=== PATIENT | female | born 1960 | race Caucasian/White ===

== ENCOUNTER → 2019-10-26 07:58 | Outpatient (BNVA) | payer BC, SELFPAY | PROVIDERS: Family Provider Nurse Practitioner; PCP Nurse Practitioner; Visit Provider Specialist | DX: G43.019 Migraine without aura, intractable, without status migrainosus (principal); Z87.891 Personal history of nicotine dependence | CPT/HCPCS: 99212 ==

== ENCOUNTER 2020-02-17 07:49 | Outpatient (CLI) | payer BC, SELFPAY ==
--- NOTE | 2020-02-17 08:08 | MM_ITS ---
WS: [id number] BILATERAL SCREENING MAMMOGRAM WITH CONNOR DISPLACEMENT VIEWS. CAD PERFORMED. HISTORY: SCREENING COMPARISON: 12/07/2018 and 12/01/2017 Bilateral craniocaudal and mediolateral like views are performed. Connor displacement views in CC and MLO projection also performed. Breasts composition: The breasts are heterogeneously dense, which may obscure small masses. Implants are intact and unchanged in position. Scattered asymmetries are stable. No suspicious masses. MM/[place] [id number] IMPRESSION: BI-RADS: 2-Benign FOLLOW-UP: 1 Year Follow-up
== END 2020-02-17 07:50 | disposition home or self-care (01) ==
LOC: RADSHAW 07:55
PROVIDERS: PCP Nurse Practitioner; Visit Provider Nurse Practitioner
DX: Z12.31 Encounter for screening mammogram for malignant neoplasm of breast (principal)
CPT/HCPCS: 77067

== ENCOUNTER → 2020-10-23 08:06 | Outpatient (BNVA) | payer BC, SELFPAY | PROVIDERS: PCP Nurse Practitioner; Visit Provider Specialist | DX: G43.019 Migraine without aura, intractable, without status migrainosus (principal); Z87.891 Personal history of nicotine dependence | CPT/HCPCS: 99213 ==

== ENCOUNTER 2021-03-21 05:12 | Outpatient (CLI) | payer BC, SELFPAY ==
[2021-03-21 05:53] VITALS: BP 92/61; PULSE 88; RESP 17; O2SAT 98; BMI 24.0
[2021-03-21 06:38] VITALS: BP 88/53; PULSE 69; RESP 18; O2SAT 97
== END 2021-03-21 05:13 | disposition home or self-care (01) ==
LOC: ER 05:13
PROVIDERS: PCP Nurse Practitioner; Visit Provider Nurse Practitioner Family
DX: U07.1 COVID-19 (principal)

== ENCOUNTER 2021-03-21 07:35 | Emergency (ER) | payer BC, SELFPAY ==
[2021-03-21] VITALS (7 sets, daily range): BP systolic 91–143; BP diastolic 41–94; PULSE 69–81; RESP 14–23; TEMP 37.3; O2SAT 99–100; BMI 20.2
[2021-03-21] MEDS: EPINEPHrine 1 mg/mL INJ 0.3 MG IM (07:50)
--- NOTE | 2021-03-21 07:53 | XR_ITS ---
WS: [id number] CHEST, 1 view. HISTORY: SOB COMPARISON: 08/23/2011 Lungs are clear and well expanded. No pleural effusion or pneumothorax. Cardiac size: Normal. Mediastinum/Aorta: Normal mediastinum. No osseous abnormality seen. XR/XR chest 1V [id number] IMPRESSION: Unremarkable chest.
--- NOTE | 2021-03-21 07:53 | PC.NURSE ---
while this nurse was in room completing triage assessment pt's oxygenation went from 95% on room air to 79% on room air. ED physician notified and in room. Pt placed on oxygen and orders received
--- NOTE | 2021-03-21 08:04 | ECG_ITS ---
Test Date: 2021-03-21 Pat Name: Virginia Biswas Department: Room: Gender: Female [employer]: : 1960 Requested By: Phill Shetty Order Number: [id number] Alberto MD: Rosalba Ramey M.D. Measurements Intervals [place] Rate: 64 P: 76 RI: 141 QRS: 72 QRSD: 89 T: 71 QT: 413 QTc: 428 Interpretive Statements SINUS RHYTHM POSSIBLE LEFT ATRIAL ENLARGEMENT [-0.1mV P WAVE IN V1/V2] No previous ECG available for comparison Electronically Signed On 03-21-2021 20:27:29 CDT by Rosalba Ramey M.D. [email or web address] [id number] f
[2021-03-21 08:05] LABS: ABG PCO2 30.2 mmHg (35-45); ABG PH Result 7.47 (7.35-7.45); Arterial Blood Gas Hematocrit 45.8 % (37-47); Base Excess ABG -0.7 mmol/L (-2.0-2.0); Blood Gas Allen Test Pos; Blood Gas Operator Identificat glc; Blood Gas Sample Site Radial, left; Blood Gas Sample Type Arterial; Carboxyhemoglobin 0.4 %THgb (0.4-20.1); HCO3 ABG 21.9 mmol/L (22-26); HGB O2 Sat 99.5 % (95-100); Ionized Calcium Level - ABG 1.1 mmol/L (1.1-1.4); Methemoglobin 0.6 % (0.4-1.5); Oxygen Device NRB; Oxygen Saturation ABG > 100.0; Potassium Level - ABG 3.8 mmol/L (3.5-5.0); Total Hemoglobin 14.9 g/dL (12-16)
--- NOTE | 2021-03-21 08:08 | ED_ITS ---
HPI - Allergic Reaction General: Chief complaint: Allergic Reaction Stated complaint: allergic reaction covid infusion Time Seen by Provider: 03/21/21 07:43 History of Present Illness: HPI narrative: 60-year-old female who was recently diagnosed with Covid. She is qualified for a monoclonal antibody infusion was in her monoclonal antibody infusion clinic this morning being observed after receiving the infusion began having a rash. Rash was truncal in nature she denied any difficulty breathing. She also had some facial swelling particularly around her eyes. No stridor no vomiting. Patient was given Pepcid Solu-Medrol and Benadryl IV in the infusion clinic I was called to the clinic and evaluated the patient she had no wheezing. She was transported to the ER and admitted. Shortly after arrival here she began developing wheezing particularly on the left side. She was given IM epinephrine and changed from nasal cannula to simple mask nonrebreather. MD complaint: allergic reaction and facial swelling Onset (ago): minute(s) Exposure: medication (Regeneron) Associated symptoms: Reports facial swelling, itching and rash; Deny abdominal pain, difficulty breathing, dysphagia, dizziness, hoarseness, lip swelling, nausea, tongue swelling or vomiting Severity: moderate Treatment prior to arrival: benadryl, steroids and other (Pepcid) Previous Allergic Reaction History: none Review of Systems Const: Denies: fever(s), chills, body aches, change in appetite, fatigue or malaise ENMT: Denies: hoarseness Card: Denies: chest pain, edema, dyspnea on exertion or orthopnea Resp: Denies: dyspnea, productive cough or non-productive cough GI: Denies: abdominal pain, nausea, vomiting or dysphagia : Denies: flank pain, difficulty voiding, dysuria, urinary frequency or urinary urgency Skin/Breast: Denies: rash or pruritus Neuro: Denies: dizziness All/Imm: Reports: facial swelling; Denies: tongue swelling PFSH ED PFSH: Family History Other No pertinent family history Social History Smoking and tobacco status: former smoker History of recent travel: No Physical Exam Const: COMMON NORMALS: no acute distress GENERAL APPEARANCE: cooperative and comfortable ORIENTATION/CONSCIOUSNESS: Yes awake, Yes oriented to person, Yes oriented to place and Yes oriented to time HENMT: COMMON NORMALS: normocephalic, atraumatic and hearing grossly normal bilaterally HEAD & SCALP: normocephalic and atraumatic Eye: COMMON NORMALS: Equal, round and reactive pupils present, EOMs intact bilaterally, conjunctivae normal and no scleral icterus CONJUNCTIVA: Yes conjunctivae normal PUPIL: Yes Equal, round and reactive pupils present OTHER: L eyelid swelling slightly pruritic Neck/C-Spine: COMMON NORMALS: no JVD Lymph: LYMPHATIC: no lymphadenopathy noted and no lymphedema noted Resp: COMMON NORMALS: normal respiratory effort, No retractions, No use of accessory muscles and clear to auscultation bilaterally AUSCULTATION: clear to auscultation bilaterally Cardio: COMMON NORMALS: no JVD, regular rate, regular rhythm and No murmurs present (Cardio) RATE: regular rate RHYTHM: regular rhythm GI: COMMON NORMALS: Soft to palpation and No hepatosplenomegaly present AUSCULTATION: Yes normoactive bowel sounds PALPATION: Yes Soft to palpation, No Tenderness to palpation present (GI), No Guarding due to palpation present (GI) and Yes No hepatosplenomegaly present Extremity: COMMON NORMALS: normal to inspection, capillary refill normal, no clubbing, cyanosis or edema, no calf tenderness and no pedal edema Neuro: SENSORIUM/ORIENTATION: Yes oriented to person, Yes oriented to place and Yes oriented to time Skin: NARRATIVE SKIN EXAM: Truncal rash none of the extremities. Course Vital Signs: Vital signs: Vital Signs Temperature 99.2 F 03/21/21 09:30 Pulse Rate 73 03/21/21 11:13 Respiratory Rate 18 03/21/21 11:13 Blood Pressure 102/54 03/21/21 11:13 Pulse Oximetry 100 03/21/21 11:13 MDM - Allergic Reaction MDM Narrative: Medical decision making narrative: Rash began to resolve with observation patient is feeling much better. Will discharge home dexamethasone daily for 7 days Benadryl as needed if has any worsening or change symptoms return. Lab Data: Labs: Lab Results 03/21/21 03/21/21 03/21/21 Range/Units 08:03 09:07 09:07 WBC 7.6 (4.0-10.0) 10^3/ uL RBC 4.78 (4.1-5.3) 10^6/u L Hgb 14.3 (11.5-15.3) g/dL Hct 43.9 (37.0-47.0) % MCV 91.8 (81-99) fL MCH 29.9 (28.0-34.0) pg MCHC 32.6 (30.0-36.0) g/dL RDW 12.4 (12.1-15.1) % Plt Count 276 (130-400) 10^3/c mm MPV 8.9 (7.4-10.4) fL Neut % (Auto) 80.3 % Lymph % (Auto) 16.0 % [place] % (Auto) 1.6 % Eos % (Auto) 0.5 % Baso % (Auto) 0.4 % Neut # (Auto) 6.13 (1.8-7.7) 10^3/u L Lymph # (Auto) 1.2 (0.8-4.8) 10^3/u L [place] # (Auto) 0.1 L (0.2-0.9) 10^3/u L Eos # (Auto) 0.0 (0.0-0.8) 10^3/u L Baso # (Auto) 0.0 (0.0-0.1) 10^3/u L Nucleated RBC % (a uto) 0 % Nucleated RBCs # 0.0 /100WBC Specimen Type Arterial Sample Site Radial, left ABG pH 7.47 H (7.35-7.45) ABG pCO2 30.2 L (35-45) mmHg ABG pO2 368.0 H (80.0-100.0) mmH g ABG HCO3 21.9 L (22-26) mmol/L ABG O2 Saturation > 100.0 ABG Base Excess -0.7 (-2.0-2.0) mmol/ L Hakeem Test Pos A-a O2 Gradient 39.0 H (5-10) mmHg Hematocrit 45.8 (37-47) % Hgb O2 Saturation 99.5 (95-100) % Carboxyhemoglobin 0.4 (0.4-20.1) %THgb Methemoglobin 0.6 (0.4-1.5) % Total Hemoglobin 14.9 (12-16) g/dL Sodium 137.0 133 L (131-143) mmol/L Potassium 3.8 3.4 L (3.5-5.0) mmol/L Glucose 94.0 144 H (70-115) mg/dL Ionized Calcium 1.1 (1.1-1.4) mmol/L O2 Delivery Device Nrb O2 Liters/Min 15.0 % FiO2 100.0 % Commercial Correspondent ID glc Chloride 96 L (98-107) mmol/L Carbon Dioxide 22 (22-29) mmol/L Anion Gap 18.4 (5-19) BUN 10 (8-23) mg/dL Creatinine 0.7 (0.5-0.9) mg/dL GFR Calculation 85.4 L (90-130) mL/min Calculated Osmolal ity 278 L (285-295) mOsm/k g Calcium 8.0 L (8.5-10.5) mg/dL Total Bilirubin 0.2 (0.15-1.2) mg/dL AST 24 (0-32) U/L ALT 19 (0-33) U/L Alkaline Phosphata se 62 (35-105) IU/L Total Protein 6.4 L (6.6-8.7) g/dL Albumin 3.2 L (3.5-5.2) g/dL Globulin 3.2 (1.3-4.6) g/dL Discharge Plan Discharge Patient Disposition: Home Clinical Impression: Adverse reaction to drug, Allergic reaction Condition: Stable Prescriptions: New dexamethasone 6 mg tablet 6 mg PO DAILY Qty: 7 RF: 0 No Action neomycin-polymyxin B-dexameth 3.5mg/mL-10,000 unit/mL-0.1 % drops,suspension ophthalmic (eye) RF: 0 Tremfya 100 mg/mL syringe SUBCUT RF: 0 magnesium oxide 500 mg tablet 500 mg PO DAILY RF: 0 cholecalciferol (vitamin D3) 4,000 unit capsule 2,000 unit PO DAILY RF: 0 biotin 10,000 mcg capsule 10,000 mcg PO DAILY RF: 0 compounded hormone replacement PO DAILY RF: 0 topiramate [Topamax] 100 mg tablet 100 mg PO DAILY Qty: 90 RF: 3 sumatriptan succinate 50 mg tablet 50 mg PO Q2H MDD 2 tabs Qty: 9 RF: 11 Discharge Orders: Discharge ED (Routine); Ordered 03/21/21 Ordered By: Phill Bravo Referrals: Landy Biswas APN [Primary Care Provider] - Discharge Diet: Usual diet Discharge Activity: Increase activity as tolerated Patient Instructions: Opioid Safety Activity Restrictions/Additional Instructions: Telehealth follow-up visit with your doctor tomorrow. Return if you have any problems. Coding Level of Care Code ED Auto Service Dispatcher for Chg Fwd Exam Comprehensive
[2021-03-21 09:14] LABS: Basophils % 0.4 %; Eosinophils % 0.5 %; Hematocrit 43.9 % (37.0-47.0); Hemoglobin 14.3 g/dL (11.5-15.3); Lymphocytes # 1.2 10^3/uL (0.8-4.8); Mean Corpuscular HGB Conc 32.6 g/dL (30.0-36.0); Mean Corpuscular Hemoglobin 29.9 pg (28.0-34.0); Mean Corpuscular Volume 91.8 fL (81-99); Mean Platelet Volume 8.9 fL (7.4-10.4); Monocytes # 0.1 10^3/uL (0.2-0.9); Monocytes % 1.6 %; Neutrophils # 6.13 10^3/uL (1.8-7.7); Neutrophils % 80.3 %; Nucleated Red Blood Cells % 0 %; Platelet Count 276 10^3/cmm (130-400); Red Blood Count 4.78 10^6/uL (4.1-5.3); Red Cell Distribution Width 12.4 % (12.1-15.1); White Blood Count 7.6 10^3/uL (4.0-10.0)
[2021-03-21 09:55] LABS: Alanine Aminotransferase 19 U/L (0-33); Albumin Level 3.2 g/dL (3.5-5.2); Alkaline Phosphatase 62 IU/L (35-105); Anion Gap 18.4 (5-19); Aspartate Amino Transferase 24 U/L (0-32); Blood Urea Nitrogen 10 mg/dL (8-23); Carbon Dioxide 22 mmol/L (22-29); Chloride 96 mmol/L (98-107); Globulin 3.2 g/dL (1.3-4.6); Glomerular Filtration Rate 85.4 mL/min (90-130); Glucose 144 mg/dL (65-115); Osmolality Calculated 278 mOsm/kg (285-295); Potassium 3.4 mmol/L (3.5-5.1); Sodium 133 mmol/L (136-145); Total Bilirubin 0.2 mg/dL (0.15-1.2); Total Protein 6.4 g/dL (6.6-8.7)
[2021-03-21 10:13] LABS: Slide Review Slide Review Perform
== END 2021-03-21 11:17 | disposition home or self-care (01) ==
PROVIDERS: Emergency Provider Family Medicine; PCP Nurse Practitioner
DX: T80.89XA Other complications following infusion, transfusion and therapeutic injection, initial encounter (principal); Z87.891 Personal history of nicotine dependence; U07.1 COVID-19
CPT/HCPCS: 71045; 80051; 80053; 82330; 82805; 85025; 93005; 96372; 99284; J0171